=== PATIENT | female | born 1990 | race Caucasian/White ===

== ENCOUNTER 2018-04-04 12:29 | Outpatient (CLI) | payer OTHER ==
[2018-04-04] MEDS ORDERED: LACTATED RINGERS 1,000 ML IV SCH (14:15)
--- NOTE | 2018-04-04 14:25 | US ---
EXAMINATION TYPE: US OB >= 14 wk fetus DATE OF EXAM: 04/04/2018 COMPARISON: None CLINICAL HISTORY: r/o rom position, fluid indexPatient states she is leaking fluid. TECHNIQUE: Transabdominal (TA) GESTATIONAL AGE / DATING Physician Established: (22 weeks/3 days) EDC: 08/05/2018 Dates by LMP: unknown Dates by First Scan: No previous this is first scan Dates by Current Scan: (20 weeks/6 days) EDC: 08/16/2018 SURVEY IUP: Single PLACENTA: Anterior PREVIA: No Previa NATE: 3.95 cm Oligohydramnios CERVICAL LENGTH (transabdominal: norm > 3.0cm): 3.7 cm BIOMETRY PRESENTATION: Breech BPD: 4.8 cm 20 weeks / 4 days HC: 18.8 cm 21 weeks / 1 days AC: 16.2 cm 21 weeks / 2 days FL: 3.6 cm 21 weeks / 3 days ESTIMATED WEIGHT IN GRAMS: 412 grams ESTIMATED WEIGHT IN LBS/OZ: 0 lbs. 15 oz. WEIGHT PERCENTAGE BASED ON ESTABLISHED DATES: 5.9% HC/AC: 1.2 Normal FL/AC: 22.1 Normal HEART RATE: 143 bpm RHYTHM: Normal Oligohydramnios. Nurse on unit aware and communicated to Dr Cardenas. IMPRESSION: 1. Oligohydramnios. 2. Single intrauterine gestation estimated at 20 weeks 6 days gestation based on current ultrasound m easurements. EDC is 08/16/2018 based on current measurements. 3. Cardiac activity measures 143 bpm. 4. NATE 3.95
[2018-04-04 15:03] LABS: Basophils % (A) 0 %; Eosinophils # (A) 0.1 k/uL (0-0.7); Eosinophils % (A) 1 %; HCT 37.7 % (34.0-46.0); HGB 12.9 gm/dL (11.4-16.0); Lymphocytes # (A) 2.7 k/uL (1.0-4.8); Lymphocytes % (A) 18 %; MCH 31.6 pg (25.0-35.0); MCHC 34.2 g/dL (31.0-37.0); MCV 92.5 fL (80.0-100.0); Mean Platelet Volume 6.7; Monocytes # (A) 0.4 k/uL (0-1.0); Monocytes % (A) 3 %; Neutrophils # (A) 11.4 k/uL (1.3-7.7); Neutrophils % (A) 77 %; Platelet Count 279 k/uL (150-450); RBC 4.07 m/uL (3.80-5.40); RDW 14.3 % (11.5-15.5); WBC 14.8 k/uL (3.8-10.6)
[2018-04-04] MEDS ORDERED: AMPICILLIN 2,000 MG in SODIUM CHLORIDE 0.9% 100 ML IVPB STA (16:10)
[2018-04-04] MEDS ORDERED: BETAMET ACET-BETAMETH SOD PHOS 6 MG/ML VIAL IM SCH (16:45)
[2018-04-04] MEDS ORDERED: DEXTROSE 5% IVPB STA ×2 (16:47)
[2018-04-04] MEDS ORDERED: AZITHROMYCIN IVPB STA ×2 (16:47)
[2018-04-04] MEDS ORDERED: WATER IVPB STA ×2 (16:47)
[2018-04-04 21:00] LABS: HIV AB P24 Non-Reactive (Non-Reactive); HIV P24 AG Non-Reactive (Non-Reactive)
[2018-04-05 01:31] VITALS: BP 118/74; PULSE 95; RESP 18; TEMP 98.4
--- NOTE | 2018-04-05 09:14 | P.MSEPDOC ---
Presenting Problems - Arrival Data Date of Arrival on Unit: 04/04/18 Time of Arrival on Unit: 12:29 Mode of Transport: Ambulatory - Complaint OB-Reason for Admission/Chief Complaint: Rule Out PROM Comment: pt presents to triage states is Dr Cardenas's pt. and was at [facility]. Wednesday am for leaking of fluid. They did a test for rupture of membranes and it was. positive and they discharged her and told her to follow up with Her Dr miller. states. 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 pt states had [address] Cardenas a couple of months ago then had and ultrasound then missed some appts. cannot remember month of dr visit. record from [facility] received @1500 showing it was that pt was there not Wednesday as she reported. pt had confirmed ROM per [facility] 5 days ago. see med record from that visit in [place]. this reported to DR Cardenas Medical History - Information : 6 Para: 3 Term: 3 : 0 Abortions: Spontaneous or Elective: 2 Number of Living Children: 3 - Gestational Age Gestational Age by DANIELA (wks/days): 22 Weeks and 4 Days - History Complications: Prior Comment: very limited care. no labs obtained yet due to unkept appts. confirmed ROM at [place] Review of Systems - Review of Systems Constitutional: No problems Breast: No problems ENT: No problems Cardiovascular: No problems Respiratory: No problems Gastrointestinal: No problems Genitourinary: No problems Musculoskeletal: No problems Neurological: No problems Skin: No problems Vital Signs - Temperature Temperature: 98.4 F Temperature Source: Oral - Pulse Right Pulse Rate: 95 Pulse Assessment Method: Automatic Cuff - Respirations Respiratory Rate: 18 Oxygen Delivery Method: Room Air O2 Sat by Pulse Oximetry: 98 - Blood Pressure Right Arm Blood Pressure: 118/74 Blood Pressure Mean: 88 Blood Pressure Source: Automatic Cuff Medical Screen Scoring (Pre) - Cervical Exam Dilation: Exam Deferred Effacement: Exam Deferred Membranes: ROM more than 12 hrs = 4 - Uterine Contractions Frequency: N/A Duration: N/A - Maternal Vital Signs Maternal Temperature: N/A Maternal Blood Pressure: N/A Signs of Preeclampsia: N/A Maternal Respirations: N/A - Pain Assessment Pain Scale Used: Numeric (1 - 10) Pain Intensity: 0 Pain Management Goal: 4 - Maternal Trauma Maternal Trauma: N/A - Assessment Baseline FHR: 145 Position: N/A, Non-vertex & not laboring = 3 Station: N/A - Total Score Total Score (Pre): 7 - Level of Risk Level of Risk: Medium (6-9) Physician Notification (Pre) - Physician Notified Physician Notified Date: 04/04/18 Physician Notified Time: 12:44 Physician/Practitioner Notifed:: Dr Cardenas New Order Received: Yes - Notification Comment Comment: orders for [facility], OB ultrasound for NATE , position, weight. Upon results of these further orders recived for IV, Labs, celestone, antibiotics, Magnesium, and transfer being being arranged Per Dr Cardenas. Pt left against medical advice without any treatment refusing transfer stating she will drive there herself after having smoke, dinner and some time with kids. Disposition - Disposition Transferred to:: left against med advice Discharge Date: 04/04/18 Discharge Time: 17:00 I agree with the RN Medical Screening Exam: Yes Risk & Benefit of care provided described in d/c instruction: Yes Diagnosis: SREE ROM, ONSET LABOR > 24 HR FOL RUPT, UNSP WEEKS OF GEST
== END 2018-04-04 17:00 | disposition left against medical advice (07) ==
LOC: FBPOP 12:29
PROVIDERS: ATTEND Obstetrics & Gynecology
DX: O41.02X0 Oligohydramnios, second trimester, not applicable or unspecified (principal); Z3A.20 20 weeks gestation of pregnancy
CPT/HCPCS: 96360; 96361; 84112; 86900; 86901; 86762; 82947; 85025; 86850; 87340; 87390; 76805; G0463; 99213; 99214